=== PATIENT | male | born 1950 | race Caucasian/White ===

== ENCOUNTER 2018-04-16 11:53 | Inpatient (IN) | payer MEDICARE ==
[~2018-04-16] VITALS: Ht 182.9 cm; Wt 126.6 kg
[2018-04-16 13:33] VITALS: BP 115/69
[2018-04-16] MEDS ORDERED: PRAVASTATIN SOD10 MG PO (14:03)
[2018-04-16] MEDS ORDERED: FUROSEMIDE40 MG PO (14:03)
[2018-04-16] MEDS ORDERED: ALLOPURINOL100 MG PO (14:03)
[2018-04-16] MEDS ORDERED: COREG CR80 MG PO (14:03)
[2018-04-16] MEDS ORDERED: EXFORGE 10-1601 EACH PO (14:03)
[2018-04-16 14:08] LABS: BASOPHILS % 0.3 % (0.0-1.0); EOSINOPHILS # (AUTO) 0.1 (0.0-0.4); EOSINOPHILS % 1.4 % (0.0-6.0); HEMATOCRIT 41.4 % (38.2-49.6); HEMOGLOBIN 13.9 g/dL (14.0-18.0); LYMPHOCYTES # (AUTO) 1.5 (1.0-3.2); LYMPHOCYTES % 20.6 % (18.0-39.1); MEAN CORPUSCULAR HEMOGLOBIN 29.4 pg (28-32); MEAN CORPUSCULAR HGB CONC 33.6 g/dL (31-35); MEAN CORPUSCULAR VOLUME 87.7 fL (81-99); MONOCYTES # (AUTO) 0.8 (0.2-0.8); MONOCYTES % 10.6 % (4.4-11.3); NEUTROPHILS # (AUTO) 4.8 (2.1-6.9); NEUTROPHILS % 66.8 % (38.7-80.0); PLATELET COUNT 207 x10e3/uL (140-360); RED BLOOD COUNT 4.72 x10e6/uL (4.3-5.7); RED CELL DISTRIBUTION WIDTH 13.5 % (11.7-14.4)
[2018-04-16 14:38] LABS: ALANINE AMINOTRANSFERASE 20 IU/L (0-55); ALBUMIN 3.5 g/dL (3.5-5.0); ALBUMIN/GLOBULIN RATIO 0.9 (0.8-2.0); ALKALINE PHOSPHATASE 69 IU/L (40-150); ANION GAP 12.7 mmol/L (8-16); BLOOD UREA NITROGEN 12 mg/dL (7-26); BUN/CREATININE RATIO 12 (6-25); CALCIUM 9.5 mg/dL (8.4-10.2); CARBON DIOXIDE 29 mmol/L (22-29); CHLORIDE 102 mmol/L (98-107); CREATININE, SERUM 0.97 mg/dL (0.72-1.25); EST GLOMERULAR FILTRATION RATE > 60 ML/MIN (60-); GLUCOSE 94 mg/dL (74-118); POTASSIUM 3.7 mmol/L (3.5-5.1); SODIUM 140 mmol/L (136-145)
[2018-04-16 14:41] LABS: ERYTHROCYTE SEDIMENTATION RATE 53 mm/hr (0-13)
[2018-04-16 15:03] VITALS: BP 115/69
[2018-04-16 15:11] VITALS: BP 115/69
[2018-04-16] MEDS ORDERED: SODIUM CHLORIDE 0.9% 250ML 250 ML ONE (15:35)
[2018-04-16] MEDS: CEFEPIME HCL 1 GM VIAL IV SCH (15:57)
[2018-04-16] MEDS: VANCOMYCIN 1GM/NS 250 ML 250 ML IV SCH (15:57)
[2018-04-16 16:28] VITALS: BP 120/67
[2018-04-16 20:00] VITALS: BP 136/79
[2018-04-16 20:05] VITALS: BP 136/79
--- NOTE | 2018-04-16 20:11 | Diagnostic Imaging Report ---
EXAMINATION: CHEST XRAY LINE PLACEMENT INDICATION: \S\PICCLINE PLACEMENT \S\[id number] \S\1937 COMPARISON: None FINDINGS: AP view TUBES and LINES: Right upper extremity PICC with tip overlying the upper SVC. LUNGS: Lungs are well inflated. Lungs are clear. There is no evidence of pneumonia or pulmonary edema. PLEURA: No pleural effusion or pneumothorax. HEART AND MEDIASTINUM: The cardiomediastinal silhouette is unremarkable. BONES AND SOFT TISSUES: No acute osseous lesion. Degenerative changes of the right glenohumeral joint. Soft tissues are unremarkable. UPPER ABDOMEN: No free air under the diaphragm. IMPRESSION: Right upper extremity PICC tip overlies the upper SVC. No acute thoracic abnormality. Signed by: DR. Nas Valente MD on 04/16/2018 8:08 PM
[2018-04-16] MEDS: PRAVASTATIN 20 MG TAB PO SCH (21:00)
[2018-04-17] VITALS: BP 143/79
[2018-04-17] MEDS: VANCOMYCIN 1GM/NS 250 ML 250 ML IV SCH ×2 (01:03→14:27)
[2018-04-17] MEDS: CEFEPIME HCL 1 GM VIAL IV SCH ×2 (03:04→16:39)
[2018-04-17 04:00] VITALS: BP 131/74
[2018-04-17] MEDS: VALSARTAN 160 MG TAB PO SCH (09:00)
[2018-04-17] MEDS: FUROSEMIDE 40 MG TAB PO SCH (09:00)
[2018-04-17] MEDS: CARVEDILOL 40 MG CAPCR PO SCH (09:00)
[2018-04-17] MEDS: ALLOPURINOL 100 MG TAB PO SCH (09:00)
[2018-04-17] MEDS ORDERED: AMLODIPINE PO SCH (09:00)
[2018-04-17] MEDS ORDERED: NON-FORMULARY MEDICATION (Carvedilol Phosphate (Coreg Cr) 80 MG) PO SCH (09:00)
[2018-04-17] MEDS: AMLODIPINE BESYLATE 10 MG TAB PO SCH (09:00)
[2018-04-17] MEDS ORDERED: NON-FORMULARY MEDICATION (Pravastatin Sodium 10 MG) PO SCH (09:00)
[2018-04-17] MEDS ORDERED: VALSARTAN PO SCH (09:00)
[2018-04-17 12:00] VITALS: BP 132/75
--- NOTE | 2018-04-17 12:35 | Consultation ---
DATE OF CONSULTATION: April 17, 2018 PLASTIC SURGERY CONSULTATION CHIEF COMPLAINT: Wound/cellulitis left lower extremity. HISTORY OF PRESENT ILLNESS: The patient is a 68-year-old male who states that on he was transferring from the boat to a dock when he slipped and fell and he struck his left magaña on the dock. He sustained a laceration/wound. He was seen at a [place] emergency room where they dressed the wound and placed him on antibiotics. He followed up with his primary care doctor, and both antibiotics and home health were then assigned. The patient states that since the time of the injury the wound has not healed. He was recently seen by Infectious Disease, who then recommended that the patient be admitted, started on intravenous antibiotics and have a plastic surgical wound consult performed. PAST MEDICAL HISTORY: Is not contributory for diabetes or any other wound healing issues. PAST SURGICAL HISTORY: Does include bilateral hip replacements. PERTINENT PHYSICAL EXAMINATION: He is afebrile. Both lower extremities exhibit 2+ pitting edema. On the left anterior leg there is a full-thickness wound with both devitalized soft tissue as well as eschar present. The wound measures approximately 6 cm long by 4 cm wide. There appears to be some underlying hematoma on the superior aspect of the subcutaneous space near the wound. There is no purulent exudate noted, and there does not appear to be any lymphangitic spreading of the erythema that is surrounding the wound. The white blood cell count is 7. IMPRESSION: Wound left leg with devitalized tissue. PLAN: I have explained to the patient that at this point I believe the largest impediment to wound healing is the presence of devitalized tissue. I have recommended that he undergo sharp excisional debridement of the wound, at which point we will then use collagen to try to promote healing of the wound. The patient is in agreement with this. He will be taken to the OR today, and sharp excisional debridement will be performed. Thank you for allowing me to participate in the care of your patient. Sincerely, Job#: [id number] QUIANA
--- NOTE | 2018-04-17 12:49 | Operative Report ---
DATE OF PROCEDURE: April 17, 2018 PREOPERATIVE DIAGNOSIS: Wound left leg. POSTOPERATIVE DIAGNOSIS: Wound left leg, devitalized soft tissue. PROCEDURE PERFORMED: Sharp excisional debridement of wound left leg 27 cm squared. ANESTHESIA: MAC/local. INDICATIONS: The patient is a 68-year-old male who was seen this morning with a wound that has been present since the end of January. There was a large amount of devitalized tissue as well as hematoma present. The risks, benefits and alternatives of treatment were discussed with the patient. He is prepared to undergo the procedures outlined. DETAILS OF PROCEDURE: The patient was marked preoperatively in the holding area. He was brought to the operating theater, and after the induction of adequate IV sedation he was prepped and draped in a supine position and a time out was performed. The procedure was begun by infiltrating the soft tissues of the anterior aspect around the wound with 1% Xylocaine with epinephrine. Approximately 25 mL was used. At this point, using a scalpel the wound edges were incised through the skin and subcutaneous tissues all the way circumferentially around the wound. At this point, the wound and the base were then excised sharply and removed. The wound bed was made hemostatic using the electrocautery. There was a large amount of hematoma which was tracking subcutaneously on the superior aspect of the soft tissues of the leg, and using a curet all of the hematoma was then removed. At this point, the wound was pulse lavaged with antibiotic-containing solution. Several liters were used. At the completion of the procedure, hemostasis was made absolute once again. The wound was then dressed with Xeroform gauze, Bactroban ointment and a sterile dressing. The estimated blood loss of the procedure was 15 to 20 mL. A soft dressing was applied. He was returned to the recovery room in satisfactory condition and then transferred back to his hospital bed for further care and treatment. Job#: [id number] EV
[2018-04-17] MEDS ORDERED: ONDANSETRON HCL INJ 2 MG/ML VIAL ONE (14:53)
[2018-04-17] MEDS ORDERED: PROPOFOL IV EMULSION 10 MG/ML 20 ML VIAL ONE (14:53)
[2018-04-17] MEDS ORDERED: LIDOCAINE HCL 2% LOCAL INJ 5 ML SDV VIAL INJ ONE (14:53)
[2018-04-17 16:00] VITALS: BP 117/62
--- NOTE | 2018-04-17 18:40 | Consultation ---
DATE OF CONSULTATION: INFECTIOUS DISEASE CONSULTATION REASON FOR CONSULTATION: Cellulitis of the leg, infected also. HISTORY OF PRESENT ILLNESS: This patient is a very pleasant 68-year-old white gentleman who has a history of obesity, history of lymphedema. The patient was on a boat during . He fell, cut his left magaña on the dock and had an open wound. He went to the emergency room at [place]. He was given antibiotic plus wound care. He has been seen in wound care and oral antibiotic. Since then he was referred to me to see him as an outpatient. When I saw the patient, the wound looked necrotic with some eschar. I felt he needed to be admitted for debridement and also because of his weight and he failed oral antibiotic, and I felt he would need to be on IV antibiotic. Patient is being admitted into the hospital. Infectious Disease was consulted. He is currently doing well at the present time. Patient was seen by Dr. Hansen, underwent sharp excisional debridement of the wound, which was done April 17. PAST MEDICAL HISTORY: Significant for obesity, lymphedema, venous stasis dermatitis. PAST SURGICAL HISTORY: As above. ALLERGIES: NKA. SOCIAL HISTORY: There is no smoking, drug abuse, alcohol abuse. FAMILY HISTORY: Unremarkable. REVIEW OF SYSTEMS: HEENT: Negative. PULMONARY: Negative. CARDIAC: Negative. PHYSICAL EXAMINATION: GENERAL: He is currently alert, oriented, does not seem in acute distress. VITALS: Stable. Currently afebrile. HEENT: He does not appear icteric. NECK: Supple. CHEST: Clear. HEART: S1 and S2. No S3, no S4. No murmur. ABDOMEN: Soft. Bowel sounds present. No tenderness. Obese. EXTREMITIES: The wound is well dressed at the present time. The patient underwent debridement today as mentioned above with a sharp debridement 27 cm. IMPRESSION: Infected wound of the left leg. Failed oral antibiotic. Patient with obesity and lymphedema, venous stasis dermatitis. He is currently on vancomycin and cefepime. I would recommend to continue that at least 2 weeks plus wound care. Follow the wound closely. Will get a PICC line. Recheck CBC. Recheck chem panel. Further recommendations to follow. Job#: [id number] EV
[2018-04-17] MEDS ORDERED: FENTANYL CITRATE/PF 100MCG/2 ML INJ ONE (19:28)
[2018-04-17] MEDS ORDERED: MIDAZOLAM HCL 2 MG/2 ML VIAL ONE (19:28)
[2018-04-17 20:00] VITALS: BP 123/73
[2018-04-17] MEDS: PRAVASTATIN 20 MG TAB PO SCH (20:47)
[2018-04-18] VITALS: BP 137/73
[2018-04-18 04:00] VITALS: BP 129/70
[2018-04-18] MEDS: VANCOMYCIN 1GM/NS 250 ML 250 ML IV SCH ×2 (04:09→12:32)
[2018-04-18] MEDS: CEFEPIME HCL 1 GM VIAL IV SCH ×2 (04:09→16:23)
[2018-04-18 05:28] LABS: BASOPHILS % 0.3 % (0.0-1.0); EOSINOPHILS # (AUTO) 0.1 (0.0-0.4); EOSINOPHILS % 1.6 % (0.0-6.0); HEMATOCRIT 38.7 % (38.2-49.6); HEMOGLOBIN 12.7 g/dL (14.0-18.0); LYMPHOCYTES # (AUTO) 1.5 (1.0-3.2); LYMPHOCYTES % 20.7 % (18.0-39.1); MEAN CORPUSCULAR HEMOGLOBIN 29.7 pg (28-32); MEAN CORPUSCULAR HGB CONC 32.8 g/dL (31-35); MEAN CORPUSCULAR VOLUME 90.4 fL (81-99); MONOCYTES # (AUTO) 0.7 (0.2-0.8); NEUTROPHILS # (AUTO) 4.7 (2.1-6.9); NEUTROPHILS % 67.1 % (38.7-80.0); PLATELET COUNT 190 x10e3/uL (140-360); RED BLOOD COUNT 4.28 x10e6/uL (4.3-5.7); RED CELL DISTRIBUTION WIDTH 13.7 % (11.7-14.4)
[2018-04-18 05:44] LABS: ANION GAP 11.6 mmol/L (8-16); BLOOD UREA NITROGEN 10 mg/dL (7-26); BUN/CREATININE RATIO 12 (6-25); CALCIUM 8.4 mg/dL (8.4-10.2); CARBON DIOXIDE 27 mmol/L (22-29); CHLORIDE 104 mmol/L (98-107); CREATININE, SERUM 0.85 mg/dL (0.72-1.25); EST GLOMERULAR FILTRATION RATE > 60 ML/MIN (60-); GLUCOSE 112 mg/dL (74-118); POTASSIUM 3.6 mmol/L (3.5-5.1); SODIUM 139 mmol/L (136-145)
[2018-04-18 08:00] VITALS: BP 137/77
[2018-04-18] MEDS: CARVEDILOL 40 MG CAPCR PO SCH (09:00)
[2018-04-18] MEDS: FUROSEMIDE 40 MG TAB PO SCH (09:00)
[2018-04-18] MEDS: ALLOPURINOL 100 MG TAB PO SCH (09:00)
[2018-04-18] MEDS: AMLODIPINE BESYLATE 10 MG TAB PO SCH (09:00)
[2018-04-18] MEDS: VALSARTAN 160 MG TAB PO SCH (09:00)
[2018-04-18 12:25] VITALS: BP 127/77
[2018-04-18 16:30] VITALS: BP 128/68
[2018-04-18 20:00] VITALS: BP 141/77
[2018-04-18] MEDS: PRAVASTATIN 20 MG TAB PO SCH (20:30)
[2018-04-19] VITALS: BP 143/76
[2018-04-19 04:00] VITALS: BP 145/69
[2018-04-19] MEDS: CEFEPIME HCL 1 GM VIAL IV SCH ×2 (04:33→15:00)
[2018-04-19] MEDS: VANCOMYCIN 1GM/NS 250 ML 250 ML IV SCH ×2 (04:33→13:30)
[2018-04-19 05:56] LABS: BASOPHILS % 0.4 % (0.0-1.0); EOSINOPHILS # (AUTO) 0.2 (0.0-0.4); HEMATOCRIT 38.6 % (38.2-49.6); HEMOGLOBIN 12.7 g/dL (14.0-18.0); LYMPHOCYTES # (AUTO) 1.5 (1.0-3.2); LYMPHOCYTES % 20.6 % (18.0-39.1); MEAN CORPUSCULAR HEMOGLOBIN 29.3 pg (28-32); MEAN CORPUSCULAR HGB CONC 32.9 g/dL (31-35); MEAN CORPUSCULAR VOLUME 89.1 fL (81-99); MONOCYTES # (AUTO) 0.8 (0.2-0.8); MONOCYTES % 10.7 % (4.4-11.3); NEUTROPHILS # (AUTO) 4.9 (2.1-6.9); NEUTROPHILS % 65.9 % (38.7-80.0); PLATELET COUNT 182 x10e3/uL (140-360); RED BLOOD COUNT 4.33 x10e6/uL (4.3-5.7); RED CELL DISTRIBUTION WIDTH 13.4 % (11.7-14.4)
[2018-04-19 08:10] VITALS: BP 145/81
[2018-04-19] MEDS: FUROSEMIDE 40 MG TAB PO SCH (09:00)
[2018-04-19] MEDS: CARVEDILOL 40 MG CAPCR PO SCH (09:00)
[2018-04-19] MEDS: AMLODIPINE BESYLATE 10 MG TAB PO SCH (09:00)
[2018-04-19] MEDS: VALSARTAN 160 MG TAB PO SCH (09:00)
[2018-04-19] MEDS: ALLOPURINOL 100 MG TAB PO SCH (09:00)
[2018-04-19 13:24] VITALS: BP 137/74
[2018-04-19 16:40] VITALS: BP 144/75
== END 2018-04-19 18:10 | disposition home or self-care (01) | DRG 572 ==
LOC: MED/SURG2 13:09
PROVIDERS: ADMIT Family Medicine; ATTEND Family Medicine
PROC: 02HV33Z Insertion of Infusion Device into Superior Vena Cava, Percutaneous Approach (ICD-10-PCS; 2018-04-16)
PROC: 0JBP0ZZ Excision of Left Lower Leg Subcutaneous Tissue and Fascia, Open Approach (ICD-10-PCS; principal; 2018-04-17 11:00)
DX: L03.116 Cellulitis of left lower limb (principal); S81.812A Laceration without foreign body, left lower leg, initial encounter; V94.0XXA Hitting object or bottom of body of water due to fall from watercraft, initial encounter; Y92.62 Dock or shipyard as the place of occurrence of the external cause; E66.9 Obesity, unspecified; Z68.37 Body mass index [BMI] 37.0-37.9, adult; I89.0 Lymphedema, not elsewhere classified; I87.2 Venous insufficiency (chronic) (peripheral); I10 Essential (primary) hypertension; M10.9 Gout, unspecified; M19.90 Unspecified osteoarthritis, unspecified site
CPT/HCPCS: 36415; 36569; 71045; 80048; 80053; 80202; 85025; 85651; 86140; J0692; J2001; J2250; J2405; J3370; J7050

== ENCOUNTER → 2018-04-27 | Outpatient (CLI) | payer MEDICARE ==
[~2018-04-27] MED LIST: ALLOPURINOL100 MG PO; COREG CR80 MG PO; EXFORGE 10-1601 EACH PO; FUROSEMIDE40 MG PO; PRAVASTATIN SOD10 MG PO
== END ==
LOC: WCC 11:49
PROVIDERS: ATTEND Plastic Surgery
DX: S81.802A Unspecified open wound, left lower leg, initial encounter (principal); I87.2 Venous insufficiency (chronic) (peripheral); I89.0 Lymphedema, not elsewhere classified; M10.9 Gout, unspecified; I10 Essential (primary) hypertension; E66.01 Morbid (severe) obesity due to excess calories; E78.00 Pure hypercholesterolemia, unspecified; Y92.838 Other recreation area as the place of occurrence of the external cause

== ENCOUNTER 2018-05-25 13:28 | Outpatient (RCR) | payer MEDICARE, OTHER ==
[~2018-05-25 13:28] MED LIST changes: +BACITRACIN 50,000 UNIT VIAL ONE; +LIDOCAINE 1% W/EPINEPHRINE 20 ML VIAL ONE; +LIDOCAINE VISC 2% SOLN 15 ML UDC ONE; +MINERAL OIL/PETROLAT/GLYCERI 6OZ BTL ONE; +MUPIROCIN 2% OINT 22 GM TUBE ONE
== END 2018-05-29 ==
LOC: WCC 13:28
PROVIDERS: ATTEND Plastic Surgery
DX: S81.802A Unspecified open wound, left lower leg, initial encounter (principal); I89.0 Lymphedema, not elsewhere classified; I87.2 Venous insufficiency (chronic) (peripheral); R60.0 Localized edema; M10.9 Gout, unspecified; I10 Essential (primary) hypertension; E78.00 Pure hypercholesterolemia, unspecified; E66.01 Morbid (severe) obesity due to excess calories; Y92.838 Other recreation area as the place of occurrence of the external cause

== ENCOUNTER 2018-06-15 11:38 | Outpatient (RCR) | payer MEDICARE ==
[~2018-06-15 11:38] MED LIST changes: -BACITRACIN 50,000 UNIT VIAL ONE; -LIDOCAINE 1% W/EPINEPHRINE 20 ML VIAL ONE; -LIDOCAINE VISC 2% SOLN 15 ML UDC ONE
[2018-06-15] MEDS ORDERED: MINERAL OIL/PETROLAT/GLYCERI 6OZ BTL ONE (15:04)
== END 2018-06-28 ==
LOC: WCC 11:38
PROVIDERS: ATTEND Plastic Surgery
DX: T81.89XA Other complications of procedures, not elsewhere classified, initial encounter (principal); S81.802A Unspecified open wound, left lower leg, initial encounter; I89.0 Lymphedema, not elsewhere classified; I87.2 Venous insufficiency (chronic) (peripheral); M10.9 Gout, unspecified; R60.0 Localized edema; I10 Essential (primary) hypertension; E78.00 Pure hypercholesterolemia, unspecified; E66.01 Morbid (severe) obesity due to excess calories; Y92.838 Other recreation area as the place of occurrence of the external cause

== ENCOUNTER → 2021-03-20 | Day surgery (SDC) | payer MEDICARE ==
[2021-03-15 12:17] LABS: BASOPHILS % 0.2 % (0.0-1.0); EOSINOPHILS # (AUTO) 0.1 (0.0-0.4); EOSINOPHILS % 1.2 % (0.0-6.0); HEMATOCRIT 41.2 % (38.2-49.6); HEMOGLOBIN 13.3 g/dL (14.0-18.0); LYMPHOCYTES # (AUTO) 1.6 (1.0-3.2); LYMPHOCYTES % 16.5 % (18.0-39.1); MEAN CORPUSCULAR HEMOGLOBIN 29.8 pg (28-32); MEAN CORPUSCULAR HGB CONC 32.3 g/dL (31-35); MEAN CORPUSCULAR VOLUME 92.2 fL (81-99); MONOCYTES # (AUTO) 1.1 (0.2-0.8); MONOCYTES % 11.3 % (4.4-11.3); NEUTROPHILS # (AUTO) 6.7 (2.1-6.9); NEUTROPHILS % 70.4 % (38.7-80.0); PLATELET COUNT 221 x10e3/uL (140-360); RED BLOOD COUNT 4.47 x10e6/uL (4.3-5.7); RED CELL DISTRIBUTION WIDTH 13.8 % (11.7-14.4)
[~2021-03-20] MED LIST changes: +DOXYCYCLINE HY100 MG PO; +FENTANYL CITRATE/PF 100MCG/2 ML INJ ONE; +GLUCAGON FOR INJ 1 MG VIAL ONE; +HYOSCYAMINE SULFATE 0.5 MG/ML INJ ONE; +LIDOCAINE HCL 2% LOCAL INJ 5 ML SDV VIAL INJ ONE; +MIDAZOLAM HCL 2 MG/2 ML VIAL ONE; -MINERAL OIL/PETROLAT/GLYCERI 6OZ BTL ONE; -MUPIROCIN 2% OINT 22 GM TUBE ONE; +PENTOXIFYLLINE400 MG PO; +PROPOFOL IV EMULSION 10 MG/ML 20 ML VIAL ONE; +SIMETHICONE 40 MG/0.6 ML BTL ONE
[2021-03-20 16:15] VITALS: BP 138/84
== END | disposition home or self-care (01) ==
LOC: OR 12:24
PROVIDERS: ATTEND Internal Medicine Gastroenterology
DX: Z09 Encounter for follow-up examination after completed treatment for conditions other than malignant neoplasm (principal); D12.0 Benign neoplasm of cecum; D12.2 Benign neoplasm of ascending colon; D12.3 Benign neoplasm of transverse colon; D12.5 Benign neoplasm of sigmoid colon; K62.1 Rectal polyp; K57.30 Diverticulosis of large intestine without perforation or abscess without bleeding; R19.5 Other fecal abnormalities; K64.8 Other hemorrhoids; G47.33 Obstructive sleep apnea (adult) (pediatric); I10 Essential (primary) hypertension; I44.0 Atrioventricular block, first degree; E66.9 Obesity, unspecified; I89.0 Lymphedema, not elsewhere classified; L97.329 Non-pressure chronic ulcer of left ankle with unspecified severity; L97.319 Non-pressure chronic ulcer of right ankle with unspecified severity; Z01.810 Encounter for preprocedural cardiovascular examination; Z01.812 Encounter for preprocedural laboratory examination; Z20.822 Contact with and (suspected) exposure to COVID-19; Z79.02 Long term (current) use of antithrombotics/antiplatelets; Z68.41 Body mass index [BMI] 40.0-44.9, adult; Z85.828 Personal history of other malignant neoplasm of skin; Z87.891 Personal history of nicotine dependence
CPT/HCPCS: 36415; 45380; 45384; 45385; 85025; 93005; J1610; J1980; J2001; J2250; J2704; J3010; U0002; 45378